=== PATIENT | female | born 1975 | race Caucasian/White ===

== ENCOUNTER → 2016-11-11 | Outpatient (CLI) | payer OTHER | LOC: FIMAGING 07:08 | PROVIDERS: ATTEND Surgery | DX: R10.11 Right upper quadrant pain (principal); R19.00 Intra-abdominal and pelvic swelling, mass and lump, unspecified site ==

== ENCOUNTER → 2017-01-24 | Outpatient (CLI) | payer OTHER | LOC: FIMAGING 10:20 | PROVIDERS: ATTEND Physician Assistant Medical | DX: Z12.39 Encounter for other screening for malignant neoplasm of breast (principal); N63 Unspecified lump in breast | CPT/HCPCS: G0204 ==